=== PATIENT | male | born 1980 | race Caucasian/White ===

== ENCOUNTER 2019-03-04 13:54 | Emergency (ER) | payer OTHER ==
[2019-03-04 14:26] VITALS: TEMP 98.3; BMI 27.3
--- NOTE | 2019-03-04 15:15 | PDOC ---
History of Present Illness - General Chief Complaint: Substance Abuse Stated Complaint: DETOX Time Seen by Provider: 03/04/19 14:23 History Source: Patient, Friend Exam Limitations: No Limitations - History of Present Illness Initial Comments: 03/04/19 15:14 Kelvin Harp is a 39M with PMH mild MR, asthma, BPD, gastritis, heroin/tobacco/ alcohol use presenting to [facility] for heroin detox. Patient present at bedside with best friend, who is highly involved in his care as patient is unable to read. Patient and friend report that they were trying to get him to [facility] for rehab for heroin use, but mistakenly came to [facility]. Patient has history of intermittent heroin use, last used yesterday night nasally, unspecified amount, denies ever injecting heroin, denies other opiate use. Was previously clean a few months ago, but got depressed and started using again. Denies cocaine or marijuana use, intermittently drinks alcohol but denies drinking any in the last week, smokes cigarettes intermittently/ socially. Denies SI/HI, denies A/V hallucinations, denies medication overdose. Has no symptoms at this time. Concerned about STDs, recent unprotected intercourse. Denies fever, chills, N/V/C/D, SIMONS, chest pain, SOB, urinary symptoms, dizziness , unsteady gait. Past History - Past Medical History Allergies/Adverse Reactions: Allergies Allergy/AdvReac Type Severity Reaction Status Date / Time aspirin Allergy Unknown Verified 03/04/19 14:24 cephalexin Allergy Unknown Verified 03/04/19 14:24 COPD: No Diabetes: (pre) - Psycho Social/Smoking Cessation Hx Smoking History: Current every day smoker Have you smoked in the past 12 months: Yes Number of Cigarettes Smoked Daily: 20 Information on smoking cessation initiated: Yes Hx Alcohol Use: Yes Drug/Substance Use Hx: Yes (heroin) Review of Systems - Review of Systems Able to Perform ROS?: Yes Constitutional: No: Symptoms Reported HEENTM: No: Symptoms Reported Respiratory: No: Symptoms reported Cardiac (ROS): No: Symptoms Reported ABD/GI: No: Symptoms Reported : No: Symptoms Reported Musculoskeletal: No: Symptoms Reported Integumentary: No: Symptoms Reported Neurological: No: Symptoms reported Psychiatric: Yes: Depression Endocrine: No: Symptoms Reported Hematologic/Lymphatic: No: Symptoms Reported All Other Systems: Reviewed and Negative *Physical Exam - Vital Signs Last Vital Signs Temp Pulse Resp BP Pulse Ox 98.3 F 89 18 124/70 99 03/04/19 14:08 03/04/19 14:08 03/04/19 14:08 03/04/19 14:08 03/04/19 14:08 - Physical Exam General Appearance: Yes: Nourished, Appropriately Dressed. No: Apparent Distress HEENT: positive: EOMI, ARLENE, Normal Voice, Symmetrical, Pharynx Normal, Hearing Grossly Normal. negative: Scleral Icterus (R), Scleral Icterus (L), Pharyngeal Erythema, Tonsillar Exudate, Tonsillar Erythema, Rhinorrhea Neck: positive: Normal Thyroid, Supple. negative: Tender, Rigid, Lymphadenopathy (R), Lymphadenopathy (L) Respiratory/Chest: positive: Lungs Clear, Normal Breath Sounds. negative: Chest Tender, Respiratory Distress, Crackles, Rales, Rhonchi, Stridor, Wheezing Cardiovascular: positive: Regular Rhythm, Regular Rate Gastrointestinal/Abdominal: positive: Normal Bowel Sounds, Flat, Soft. negative : Tender, Organomegaly, Pulsatile Mass Musculoskeletal: positive: Normal Inspection. negative: CVA Tenderness Extremity: positive: Normal Capillary Refill, Normal Inspection, Normal Range of Motion. 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 Patient mistakenly came to ED instead of [facility] for heroin detox. Patient is asymptomatic at this time, does not appear intoxicated, has stable VS, and is alert/oriented x4 and willing to go to detox for help. No concerning findings on physical exam. Patient is stable to be discharged, giving instructions and referral to go to [facility] inpatient detox at [address] [place] [address]. Patient and friend agree with plan, will go directly to [facility] after discharge. Discharge - Discharge Information Problems reviewed: Yes Clinical Impression/Diagnosis: Substance abuse Condition: Stable Disposition: HOME - Admission No - Follow up/Referral Referrals: ON STAFF,NOT [Primary Care Provider] - Christiano Wong MD [Staff Physician] - - Patient Discharge Instructions Additional Instructions: Today you were evaluated for detox. We have evaluated you here briefly and have not found any concerning conditions that require intervention at this time. However, we do not routinely perform this detox service at this hospital. Please follow-up with the physicians at our rehabilitation center, located at: [place] [address] Medical: If you have any difficulty breathing, chest pain, or any new or concerning symptoms, please return to the emergency room. - Post Discharge Activity
--- NOTE | 2019-03-04 15:53 | PDOC ---
Attending Attestation - Resident Resident Name: Heri Matos - ED Attending Attestation I have performed the following: I have examined & evaluated the patient, The case was reviewed & discussed with the resident, I agree w/resident's findings & plan, Exceptions are as noted - HPI HPI: 03/04/19 15:25 Mr. Hunter is a 39-year-old male presenting to the emergency department for detox Patient has a history of heroin use Pt is snorting heroin, can not tell me how much he is using on a daily basis ( using 5 cent bags) Patient has undergone heroin detox several years ago Patient denies any other drug use He denies nausea Last use of heroin was last night No fever Some chills - Physicial Exam PE: 03/04/19 15:53 GENERAL: The patient is in no acute distress. ENT: Poor dentition, moist mucous members NECK: Normal range of motion, supple LUNGS: Breath sounds equal, clear to auscultation bilaterally. No wheezes, and no crackles. HEART: Regular rate and rhythm, normal S1 and S2 without murmur, rub or gallop. ABDOMEN: Soft, nontender EXTREMITIES: Normal range of motion, no edema. NEUROLOGICAL: Cranial nerves II through XII grossly intact. Normal speech. No focal neurological deficits. SKIN: No rashes no abrasion - Medical Decision Making 03/04/19 15:55 39-year-old male presenting to the emergency department requesting detox from heroin Patient unfortunately came to the ER Would like to go with his friend who accompanied him here to [facility] Clinical impression: Heroin addiction, initial presentation
[2019-03-04 16:24] VITALS: BP 126/81; PULSE 91
== END 2019-03-04 15:20 | disposition home or self-care (01) ==
LOC: JER 13:54
DX: F11.20 Opioid dependence, uncomplicated (principal); Z79.82 Long term (current) use of aspirin; Z88.8 Allergy status to other drugs, medicaments and biological substances
CPT/HCPCS: 99281-25